=== PATIENT | female | born 1935 | race Caucasian/White ===

== ENCOUNTER 2018-01-08 09:58 | Outpatient (CLI) | payer MEDICARE | END 2018-01-08 09:59 | disposition home or self-care (01) | LOC: BICMAMMO 09:58 | PROVIDERS: ATTEND Internal Medicine | DX: C50.111 Malignant neoplasm of central portion of right female breast (principal); E89.0 Postprocedural hypothyroidism; Z85.3 Personal history of malignant neoplasm of breast; Z85.850 Personal history of malignant neoplasm of thyroid | CPT/HCPCS: 77066; G0279 ==

== ENCOUNTER 2018-04-12 13:34 | Outpatient (CLI) | payer MEDICARE ==
--- NOTE | 2018-04-12 15:13 | BD ---
BONE DENSITOMETRY USING DEXA: Date: 04/12/18 HISTORY: Postmenopausal screening for osteoporosis. FINDINGS: Lumbar Spine: BMD (g/cm2) L1 0.797 T-Score: -1.8 Z-Score: 0.7 L2 0.956 T-Score: -0.7 Z-Score: 2.1 L3 0.771 T-Score: -2.8 Z-Score: 0.0 L4 0.768 T-Score: -2.7 Z-Score: 0.3 L1-L4 0.817 T-Score: -2.1 Z-Score: 0.7 Femoral Neck: 0.550 T-Score: -2.7 Z-Score: -0.3 Total Femur: 0.691 T-Score: -2.1 Z-Score: 0.1 IMPRESSION: Osteoporosis. POS: OFF
== END 2018-04-12 13:35 | disposition home or self-care (01) ==
LOC: BICMAMMO 13:34
PROVIDERS: ATTEND Internal Medicine Hematology & Oncology
DX: C50.311 Malignant neoplasm of lower-inner quadrant of right female breast (principal); Z78.0 Asymptomatic menopausal state; M81.0 Age-related osteoporosis without current pathological fracture
CPT/HCPCS: 77080